=== PATIENT | male | born 1995 | race Two or more races ===

== ENCOUNTER 2016-11-29 00:13 | Emergency (ER) | payer SELFPAY ==
[~2016-11-29] VITALS: Ht 170.2 cm; Wt 86.2 kg
[2016-11-29 09:22] VITALS: BP 134/84
== END 2016-11-29 09:21 | disposition home or self-care (01) ==
LOC: EDBD 00:19 → ER 00:19
DX: J02.9 Acute pharyngitis, unspecified (principal); F32.9 Major depressive disorder, single episode, unspecified
CPT/HCPCS: 70360